=== PATIENT | male | born 1985 | race Caucasian/White ===

== ENCOUNTER 2020-12-07 19:11 | Observation (INO) | payer SELFPAY ==
[~2020-12-07] VITALS: Ht 177.8 cm; Wt 65.9 kg
--- NOTE | ~2020-12-07 | OP ---
PATIENT NAME: MANISH RAMOS MEDICAL RECORD: [id number] LOCATION:[id number] ADMISSION DATE:12/07/20 SURGEON: RON PAGAN DO DATE OF OPERATION: 12/08/2020 PROCEDURE PERFORMED: Left forearm irrigation, debridement and closure of lacerations, multiple. PREOPERATIVE DIAGNOSIS: Left forearm lacerations. POSTOPERATIVE DIAGNOSIS: Left forearm lacerations. INDICATIONS: Mr. Ramos is a 35-year-old male, who presented to the ER I believe yesterday, who had left forearm lacerations from, he does not know when he says and he does not know how they got there. He did have other wounds/healed scars on his left forearm, so possibly could have been self-inflicted, but he was not at liberty to say or did not mention that. The patient's nerves were all intact to the median nerve. He had full flexion and extension of his fingers and his wrist and his sensation was all intact in the radial, median and ulnar nerves. On the volar side, he had a 9 cm laceration extending over the flexor carpi radialis going almost obliquely ulnarly but in longitudinal direction and then on the dorsal side he had at the more proximal portion an 8 cm laceration, then a 4 cm, 3 cm, and 2 cm laceration going from proximal to distal in that order with fascia exposed. I informed him of the risks of this including further infection, damage to nerves and vessels in the area, continued pain, loss of motion of the wrist and loss of sensation. He was okay with all that as well as nonhealing wound and he signed the consent. SURGEON: Ron Pagan DO DESCRIPTION OF PROCEDURE: The patient was taken to the operative suite, laid in supine position, given general anesthetic. Two grams Ancef. An LMA was placed. The left upper extremity was then prepped and draped in sterile fashion. A timeout was performed. Everyone was in agreement with the correct site, side, patient, and procedure. I then explored each wound. The volar side of his median nerve was right at the incision site. He is very beth to have missed it. His flexor carpi radialis tendon was intact, but the median nerve was intact as well. On the more proximal portion of the forearm, the larger deeper incision went to the fascia of the dorsal forearm. It did not have any tendons exposed at that level, but none were cut. The same for the more distal ones. I then irrigated each incision with a total of 2 liters proximally altogether and got good bleeding edges of the lacerations. Sofya Taveras, certified surgical pathologist student, then closed the volar incision with 3-0 Monocryl in a horizontal mattress fashion. I closed the dorsal wounds with 3-0 Monocryl in a horizontal mattress fashion as well. We then dressed it with Adaptic, 4 x 4, Kerlix and Jonathan wrap. He was then awakened and taken to recovery in stable condition. BLOOD LOSS: Minimal. COMPLICATIONS: None. TRANSINT:[id number] Voice Confirmation ID: [id number] DOCUMENT ID: [id number] OPERATIVE REPORT [id number] MANISH RAMOS MICHAEL D, DO CC: [id number] DICTATION DATE: 12/08/20 151 DOUBLE CUT SAWYER: 12/08/202056 DIS IN 12/09/20 [facility] [address] [place] [address]
[2020-12-07 19:50] LABS: BASOPHILS 0.1 % (0-2); EOSINOPHILS 0.1 % (0-7); HEMATOCRIT 33.4 % (42.0-54.0); HEMOGLOBIN 11.5 g/dL (13.5-17.5); IMMATURE GRANULOCYTES 0.3 % (0-5); LYMPHOCYTE ABS# 1.87 10x3/uL (1.32-3.57); LYMPHOCYTES 10.8 % (15-50); MCH 31.7 pg (26.0-34.0); MCHC 34.4 g/dL (31.0-37.0); MEAN PLATELET VOLUME 9.6 fL (7.4-10.4); MONOCYTES 7.2 % (2-11); NEUTROPHIL ABS# 14.06 10x3/uL (1.78-5.38); NEUTROPHILS 81.5 % (40-80); PLATELET COUNT 197 10x3/uL (130-400); RBC 3.63 10x6/uL (4.20-6.10); RDW 13.5 % (11.5-14.5); WBC 17.3 10x3/uL (4.8-10.8)
[2020-12-07 19:59] LABS: CALC OSMOLALITY 272 mosm/kg (275-300); CALCIUM 8.6 mg/dL (8.5-10.1); CARBON DIOXIDE 21.4 mmol/L (21.0-32.0); CHLORIDE - SERUM 104 mmol/L (98-107); CREATININE - SERUM 0.8 mg/dL (0.6-1.3); GLUCOSE 88 mg/dL (74-106); POTASSIUM - SERUM 5.5 mmol/L (3.5-5.1); SODIUM 137 mmol/L (136-145); UREA NITROGEN 13 mg/dL (7-18); eGFR NON AFRICAN AMERICAN > 90 mL/min (90-120)
[2020-12-07 20:08] LABS: ALBUMIN 3.7 g/dL (3.4-5.0); ALKALINE PHOSPHATASE 50 U/L (30-120); ALT (SGPT) 21 U/L (10-68); BILIRUBIN - TOTAL 0.58 mg/dL (0.2-1.3); PROTEIN - SERUM 5.8 g/dL (6.4-8.2); TROPONIN-I 0.023 ng/mL (0.000-0.060)
[2020-12-07 20:51] LABS: BILIRUBIN NEGATIVE (NEGATIVE); KETONE SMALL mg/dL (NEGATIVE); NITRITE NEGATIVE (NEGATIVE); UROBILINOGEN NORMAL mg/dL (< 2)
[2020-12-07 21:03] LABS: APTT 26.3 SECONDS (22.8-39.4); INR 1.23 (0.85-1.17); PROTIME 14.4 SECONDS (11.6-15.0)
[2020-12-07 21:12] LABS: UDS - AMPHET NEGATIVE QUAL (NEGATIVE); UDS - BARB NEGATIVE QUAL (NEGATIVE); UDS - BENZO NEGATIVE QUAL (NEGATIVE); UDS - COCAINE NEGATIVE QUAL (NEGATIVE); UDS - OPIATE NEGATIVE QUAL (NEGATIVE); UDS - PCP NEGATIVE QUAL (NEGATIVE); UDS - THC NEGATIVE QUAL (NEGATIVE)
--- NOTE | 2020-12-07 21:40 | NUR ---
DR. ESPAÑA SPOKE WITH OFFICER RADHA IBRAHIM #20 ABOUT PT'S WOUNDS.
--- NOTE | 2020-12-07 23:01 | NUR ---
DR. RIVERO NOTIFIED AND REVIEWED PT'S BEHAVIOR AND ASSESSMENT RESULTS. PT IS A LOW RISK PER DR. RIVERO. DR. RIVERO STATED TO GIVE RESOURCES TO PT AT TIME OF DISCHARGE. NO FURTHER ORDERS AT THIS TIME. RESOURCES REVIEWED WITH PT AND HE VERBALIZED UNDERSTANDING.
[2020-12-08] VITALS (12 sets, daily range): BP systolic 84–140; BP diastolic 49–86; Ht 177.8 cm; Wt 65.9 kg
--- NOTE | 2020-12-08 01:00 | NUR ---
RECEVIED PT FROM ER, VIA WHEELCHAIR. PT A&O X4. PIV TO RIGHT AC PATENT AND INFUSING, NO REDNESS OR SWELLING. LACERATIONS TO BILAT ARMS. GENERALIZED WEAKNESS, ABLE TO AMBULATE WITH ASSIST. EDUCATED PT ON CL AND NEEDS, VERBALIZED UNDERSTANDING. BED LOW, CL IN REACH.
[2020-12-08 06:47] LABS: INR 1.33 (0.85-1.17); PROTIME 15.2 SECONDS (11.6-15.0)
[2020-12-08 06:59] LABS: BASOPHILS 0.2 % (0-2); EOSINOPHILS 0.1 % (0-7); IMMATURE GRANULOCYTES 0.2 % (0-5); LYMPHOCYTE ABS# 2.82 10x3/uL (1.32-3.57); LYMPHOCYTES 23.2 % (15-50); MCH 30.5 pg (26.0-34.0); MCHC 33.3 g/dL (31.0-37.0); MCV 91.4 fL (80.0-100.0); MEAN PLATELET VOLUME 9.4 fL (7.4-10.4); MONOCYTES 9.6 % (2-11); NEUTROPHIL ABS# 8.11 10x3/uL (1.78-5.38); NEUTROPHILS 66.7 % (40-80); PLATELET COUNT 222 10x3/uL (130-400); RBC 2.92 10x6/uL (4.20-6.10); RDW 13.6 % (11.5-14.5)
[2020-12-08 07:04] LABS: HEMATOCRIT 26.7 % (42.0-54.0); HEMOGLOBIN 8.9 g/dL (13.5-17.5); WBC 12.1 10x3/uL (4.8-10.8)
[2020-12-08 07:37] LABS: ALBUMIN 3.2 g/dL (3.4-5.0); ALKALINE PHOSPHATASE 41 U/L (30-120); ALT (SGPT) 17 U/L (10-68); BILIRUBIN - TOTAL 0.77 mg/dL (0.2-1.3); CALC OSMOLALITY 276 mosm/kg (275-300); CALCIUM 8.3 mg/dL (8.5-10.1); CARBON DIOXIDE 24.3 mmol/L (21.0-32.0); CHLORIDE - SERUM 105 mmol/L (98-107); CREATINE KINASE 186 UL (21-232); CREATININE - SERUM 0.8 mg/dL (0.6-1.3); GLUCOSE 99 mg/dL (74-106); PHOSPHOROUS 4.1 mg/dL (2.5-4.9); PROTEIN - SERUM 5.1 g/dL (6.4-8.2); SODIUM 138 mmol/L (136-145); UREA NITROGEN 14 mg/dL (7-18); eGFR NON AFRICAN AMERICAN > 90 mL/min (90-120)
[2020-12-08 07:38] LABS: POTASSIUM - SERUM 4.2 mmol/L (3.5-5.1)
--- NOTE | 2020-12-08 07:58 | NUR ---
PT ASLEEP. EASILY AWAKENED. CL IN REACH. NO NEEDS AT THIS TIME. WCTM
--- NOTE | 2020-12-08 19:04 | NUR ---
RECEIVED REPORT, ASSUMED CARE, BREATHING EVEN UNLABORED, CALL LIGHT IN REACH, BED LOWEST POSITION, DENIES NEEDS, NO S/S OF DISTRESS NOTED, ENCOURAGED PT TO NOTIFY STAFF OF ANY NEEDS
[2020-12-09 01:26] VITALS: BP 105/48
--- NOTE | 2020-12-09 03:41 | NUR ---
I have reviewed this patient and I concur with the Shift Assessment completed by the Licensed Practical Nurse today this shift.
[2020-12-09 05:56] LABS: BASOPHILS 0.1 % (0-2); EOSINOPHILS 0 % (0-7); HEMATOCRIT 22.3 % (42.0-54.0); IMMATURE GRANULOCYTES 0.2 % (0-5); LYMPHOCYTE ABS# 1.62 10x3/uL (1.32-3.57); LYMPHOCYTES 17.9 % (15-50); MCH 31.1 pg (26.0-34.0); MCHC 33.6 g/dL (31.0-37.0); MCV 92.5 fL (80.0-100.0); MEAN PLATELET VOLUME 9.7 fL (7.4-10.4); MONOCYTES 9.6 % (2-11); NEUTROPHIL ABS# 6.51 10x3/uL (1.78-5.38); NEUTROPHILS 72.2 % (40-80); PLATELET COUNT 187 10x3/uL (130-400); RBC 2.41 10x6/uL (4.20-6.10); RDW 13.3 % (11.5-14.5)
[2020-12-09 05:57] LABS: CALC OSMOLALITY 270 mosm/kg (275-300); CALCIUM 7.7 mg/dL (8.5-10.1); CARBON DIOXIDE 26.9 mmol/L (21.0-32.0); CHLORIDE - SERUM 103 mmol/L (98-107); CREATININE - SERUM 0.8 mg/dL (0.6-1.3); GLUCOSE 97 mg/dL (74-106); PHOSPHOROUS 3.6 mg/dL (2.5-4.9); POTASSIUM - SERUM 3.8 mmol/L (3.5-5.1); SODIUM 136 mmol/L (136-145); eGFR NON AFRICAN AMERICAN > 90 mL/min (90-120)
[2020-12-09 05:58] LABS: UREA NITROGEN 10 mg/dL (7-18)
[2020-12-09 06:09] LABS: HEMOGLOBIN 7.5 g/dL (13.5-17.5)
[2020-12-09 06:26] VITALS: BP 118/51
--- NOTE | 2020-12-09 08:11 | NUR ---
PT EASILY AWAKENED. CONCERNED ABOUT GIRLFRIEND TAKING HIS RENT MONEY AT HOME. STATES THAT HE DOESN'T NEED TO WORRY ABOUT THAT RIGHT NOW. I TOLD HIM ABOUT HIS H/H AND WHAT THAT COULD MEAN TO BEING DISCHARGED. PT STATES HE WOULD STILL LIKE TO DISCHARGE. CL IN REACH. NO NEEDS AT THIS TIME. SHAHIDA
[2020-12-09 08:26] VITALS: BP 102/61
[2020-12-09] MEDS ORDERED: CEPHALEXIN500 M1 PO (11:32)
[2020-12-09] MEDS ORDERED: HYDROCODON-ACE1 EAC7 PO (11:43)
--- NOTE | 2020-12-09 11:45 | NUR ---
PT READY TO GO HOME. DC ORDERS ARE IN. WCTM
--- NOTE | 2020-12-09 12:25 | NUR ---
IV THERAPY DISCONTINUED FROM RIGHT AC WITH TIP INTACT. DISCHARGE INSTRUCTIONS GIVEN. PT VERBALIZED UNDERSTANDING. STATES HE WAS GOING TO WALK HOME. I STATED TO LET ME TRY AND GET HIM A CAB. I WAS ABLE TO GET A CAB. GOT A WORK RELEASE ORDER.
--- NOTE | 2020-12-09 13:18 | NUR ---
PT GIVEN A BUS PASS. DID FINE WALKING TO ER.
== END 2020-12-09 13:24 | disposition home or self-care (01) ==
LOC: D.ER 19:11 → D.EDHOLD 23:12 → OBSVTIME 23:12 → D.MS 23:12
PROVIDERS: Family Medicine; ADMIT Family Medicine; ATTEND Family Medicine
DX: S51.812A Laceration without foreign body of left forearm, initial encounter (principal); X58.XXXA Exposure to other specified factors, initial encounter; Y93.9 Activity, unspecified; Y92.9 Unspecified place or not applicable